=== PATIENT | female | born 1990 | race Caucasian/White ===

== ENCOUNTER 2018-09-08 19:16 | Inpatient (IN) | payer BC ==
[~2018-09-08] VITALS: Ht 162.6 cm; Wt 107.4 kg
[2018-09-08] MEDS ORDERED: HCTZ 25MG TAB25 MG PO (19:36)
[2018-09-08] MEDS ORDERED: COREG 6.256.25 MG/TA PO (19:36)
[2018-09-08 20:36] LABS: BASO % 0.4 % (0.0-2.0); EOS # 0.2 (0.0-0.7); GRAN # 6.9 (1.4-6.5); GRAN % 67.3 % (42.2-75.2); HEMATOCRIT 46.5 % (37.0-47.0); HEMOGLOBIN 16.2 g/dl (12.5-16.0); LYMPH # 2.3 (1.2-3.4); LYMPH % 22.2 % (20.0-51.0); MEAN CELL VOLUME 83 fl (80.0-100.0); MEAN CORPUSCULAR HEMOGLOBIN 29 pg (27.0-31.0); MEAN CORPUSCULAR HGB CONC 35 g/dl (33.0-37.0); MEAN PLATELET VOLUME 10.1 fl (7.4-10.4); MONO # 0.8 (0.1-0.6); MONO % 7.9 % (1.7-9.3); PLATELET COUNT 279 K/mm3 (130-400); RED BLOOD COUNT 5.58 M/mm3 (4.10-5.30); REDCELL DISTRIBUTION WIDTH-CV 12.7 % (11.5-14.5)
[2018-09-08 20:55] LABS: ALBUMIN 4.4 gm/dL (3.5-5.0); BILIRUBIN,TOTAL 0.7 mg/dL (0.0-1.0); CREATININE, serum 1.67 mg/dL (0.52-1.25); POTASSIUM 3.1 mmol/L (3.4-5.0); TOTAL PROTEIN 8.1 gm/dL (6.4-8.2)
[2018-09-08 21:14] LABS: COLLECTION METHOD CLEAN CATCH
[2018-09-08 21:22] LABS: MUCOUS Present /lpf; PH 5 (5-8); SQUAMOUS EPITHELIAL 0-2 /hpf; URINE APPEARANCE Clear; URINE BACTERIA None Seen /hpf; URINE BILIRUBIN Negative (NEGATIVE); URINE BLOOD 1+ (NEGATIVE); URINE COLOR Yellow; URINE GLUCOSE Negative (NEGATIVE); URINE KETONE Negative (NEGATIVE); URINE LEUKOCYTE ESTERASE Negative (NEGATIVE); URINE NITRATE Negative (NEGATIVE); URINE PROTEIN(semi-quant) 1+ (NEGATIVE); URINE RBC 0-2 /hpf; URINE UROBILINOGEN Negative (NEGATIVE)
[2018-09-08 21:25] LABS: TSH w REFLEX 1.17 uIU/mL (0.465-4.680)
[2018-09-08 23:40] VITALS: O2SAT 98
[2018-09-08 23:41] VITALS: O2SAT 99
[2018-09-08 23:48] VITALS: O2SAT 98
[2018-09-08 23:52] VITALS: O2SAT 98
[2018-09-08 23:53] VITALS: O2SAT 98
[2018-09-09] VITALS (635 sets, daily range): BP systolic 115–161; BP diastolic 68–109; PULSE 72–102; TEMP 97.6–98.8; O2SAT 87–100
[2018-09-09 00:06] LABS: MAGNESIUM 1.8 mg/dL (1.6-2.3)
[2018-09-09 00:10] LABS: TROPONIN-I < 0.012 ng/mL (0.000-0.035)
[2018-09-09] MEDS ORDERED: IBU400 MG PO (01:10)
[2018-09-09] MEDS ORDERED: COREG12.5 MG PO (01:51)
--- NOTE | 2018-09-09 04:47 | NUR ---
223 - RECEIVED REPORT FROM ER NURSE AVERY VIA PHONE. 2330 - PT ARRIVED IN UNIT VIA ASTRETCHER, ABLE TO TRANSFER HERSELF FROM STRETCHER TO BED. PT ORIENTED TO ROOM, POLICY, VISITATION AND USE OF CALL LIGHT. 7695 - NICARDIPINED PUT ON HOLD. SEE IV TITRATE DOCUMENTATION.
--- NOTE | 2018-09-09 04:56 | NUR ---
NICARDIPINE DRIP PUT ON STAN PT'S BP WAS 115/68. WILL CONTINUE TO MONITOR.
[2018-09-09 06:36] LABS: CREATININE, serum 1.58 mg/dL (0.52-1.25); POTASSIUM 3.4 mmol/L (3.4-5.0)
[2018-09-09 06:52] LABS: BASO # 0.1 (0.0-0.2); BASO % 0.5 % (0.0-2.0); EOS # 0.2 (0.0-0.7); EOS % 1.8 % (0-4.0); GRAN # 6.3 (1.4-6.5); GRAN % 63.1 % (42.2-75.2); HEMATOCRIT 40.8 % (37.0-47.0); LYMPH # 2.4 (1.2-3.4); MEAN CELL VOLUME 85 fl (80.0-100.0); MEAN CORPUSCULAR HEMOGLOBIN 29 pg (27.0-31.0); MEAN CORPUSCULAR HGB CONC 34 g/dl (33.0-37.0); MEAN PLATELET VOLUME 10.1 fl (7.4-10.4); MONO % 10.3 % (1.7-9.3); PLATELET COUNT 250 K/mm3 (130-400); RED BLOOD COUNT 4.82 M/mm3 (4.10-5.30); REDCELL DISTRIBUTION WIDTH-CV 12.8 % (11.5-14.5)
--- NOTE | 2018-09-09 10:00 | NUR ---
CARDENE GTT CONTINUES TO BE ON HOLD AT THIS TIME. SBP CONSISTANTLY REMAINING BELOW 170.
--- NOTE | 2018-09-09 12:44 | NUR ---
ANDRE nieves met with patient to discuss discharge plan. 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 The patient is originally from the [facility]. The patient is independent with ADLs. The patient does not currently have a local PCP and she receives her medications from [facility]. ANDRE nieves provided a list of Primary Care Clinics and physicians in [place] as the patient wanted to conduct her own research to select a PCP. The patient does not have DPOA-HC completed but stated that she would think about completing one while here. ANDRE to continue to follow to ensure selection of PCP.
--- NOTE | 2018-09-09 19:40 | NUR ---
Bedside report received from JAYLAN Alexander
--- NOTE | 2018-09-09 20:00 | NUR ---
Patient resting in bed at this time. She is alert and oriented. No complaints of pain or discomfort. Assessment complete. Vitals remain stable. No further needs at this time. Will keep her updated on when she is moving to the floor. Will continue to monitor. Call light within reach.
--- NOTE | 2018-09-09 22:16 | NUR ---
Report called to JAYLAN Richardson on the medical floor. Patient's belongings are gathered. Awaiting transfer.
--- NOTE | 2018-09-09 22:43 | NUR ---
Patient transferred to the floor at this time via wheelchair. She is accompanied by JAYLAN Richardson. All belongings and chart went with the patient.
[2018-09-10 01:22] VITALS: BP 144/95
[2018-09-10 02:02] VITALS: BP 143/80; BP 150/99
--- NOTE | 2018-09-10 02:58 | NUR ---
Patient arieved to floor around 2245 via wheelchair. NS at 125 ml/hr to IV site to right forearm. Site is without redness, warmth, swelling, and pain. Telemetry connected. Denied having pain and discomfort. Patient smiling, laughing, and joking with staff. BP was 157/105. Given PRN Hydralazine per orders around 0015. Rechecked with a result of 144/95. Patient took shower. Had patient ambulate in [place] from bedroom to nutrition room and back. Did state that she was feeling a little dizzy, but not enough to make her feel like she would lose her balance. Gait continued to be steady. BP rechecked-150/99. This nurse sat and talked with patient for a while. BP about 30 mintues later was 154/96. Continues to deny having headache. Denies having any further dizzyness. Educated that she is scheduled to have MRA done of the abdomen, and voices understanding. Voices no other needs or concerns at this time. Sitting up in bed on computer, mom at bedside sleeping. Call light is within reach.
[2018-09-10 03:59] VITALS: BP 146/91; PULSE 79; TEMP 97.9
--- NOTE | 2018-09-10 05:54 | NUR ---
Continues to deny having pain and discomfort. Most recent BP 146/91. Denies having headache. NS continues at 125 ml/hr to right forearm. Independent in room. Mom slept on couch. Denies having any needs or concerns at this time. Resting in bed with call light within reach.
[2018-09-10 07:13] LABS: BASO # 0.1 (0.0-0.2); BASO % 0.6 % (0.0-2.0); EOS # 0.3 (0.0-0.7); EOS % 3.5 % (0-4.0); GRAN # 4.5 (1.4-6.5); GRAN % 55.2 % (42.2-75.2); HEMATOCRIT 41.4 % (37.0-47.0); HEMOGLOBIN 14.2 g/dl (12.5-16.0); LYMPH # 2.5 (1.2-3.4); LYMPH % 30.6 % (20.0-51.0); MEAN CELL VOLUME 86 fl (80.0-100.0); MEAN CORPUSCULAR HEMOGLOBIN 30 pg (27.0-31.0); MEAN CORPUSCULAR HGB CONC 34 g/dl (33.0-37.0); MEAN PLATELET VOLUME 10.2 fl (7.4-10.4); MONO # 0.8 (0.1-0.6); MONO % 9.9 % (1.7-9.3); PLATELET COUNT 239 K/mm3 (130-400); RED BLOOD COUNT 4.82 M/mm3 (4.10-5.30); REDCELL DISTRIBUTION WIDTH-CV 13.1 % (11.5-14.5)
[2018-09-10 07:22] LABS: CALCIUM 8.7 mg/dL (8.4-10.2); CREATININE, serum 1.35 mg/dL (0.52-1.25); POTASSIUM 3.6 mmol/L (3.4-5.0)
[2018-09-10 07:58] VITALS: BP 133/91; PULSE 76; TEMP 98.5
[2018-09-10 12:12] VITALS: BP 128/81; PULSE 84; TEMP 98.5
[2018-09-10] MEDS ORDERED: PRINIVIL2.5 MG PO (12:48)
[2018-09-10] MEDS ORDERED: COREG12.5 MG PO (12:50)
[2018-09-10] MEDS ORDERED: HCTZ 25MG TAB25 MG PO (12:51)
[2018-09-10] MEDS ORDERED: K-DUR 10 MEQ T10 MEQ PO (12:51)
--- NOTE | 2018-09-10 13:00 | NUR ---
Patient has been sleeping most the morning. She is anxious about her discharge plan. She has anxiety and is worried about her school work and her summer plans being affected by her stay in the hospital. She denies pain and nausea. She will be discharging later this afternoon. No other changes at this time. Call light within reach. IVF's stopped at this time as ordered.
--- NOTE | 2018-09-10 16:30 | NUR ---
Patient is discharging home. Discharge instructions discussed with patient. No questions verbalized. IV discontinued. 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 Copies of discharge instructions given to patient. Explained when her follow up appointments are. All belongings packed up and sent with patient. Patient walked out garret [place] [facility].
== END 2018-09-10 16:30 | disposition home or self-care (01) | DRG 305 ==
LOC: COL.ER 19:16 → ICU 21:44 → MEDICAL 09-09 23:44
PROVIDERS: Emergency Medicine; Hospitalist; Nurse Practitioner Family
DX: I16.1 Hypertensive emergency (principal); N17.9 Acute kidney failure, unspecified; I12.9 Hypertensive chronic kidney disease with stage 1 through stage 4 chronic kidney disease, or unspecified chronic kidney disease; N18.9 Chronic kidney disease, unspecified; E66.9 Obesity, unspecified; Z68.38 Body mass index [BMI] 38.0-38.9, adult; G89.21 Chronic pain due to trauma; M54.5 Low back pain; M54.2 Cervicalgia; Z91.14 Patient's other noncompliance with medication regimen
CPT/HCPCS: 99222-AI; 99239; A9585; C8902; J0360; J2060; J7030; J7050

== ENCOUNTER → 2018-10-18 | Outpatient (CLI) | payer BC ==
[~2018-10-18] MED LIST: COREG 6.256.25 MG/TA PO; COREG12.5 MG PO; HCTZ 25MG TAB25 MG PO; IBU400 MG PO; K-DUR 10 MEQ T10 MEQ PO; PRINIVIL2.5 MG PO
== END ==
LOC: COL.RAD 10:11
DX: N17.9 Acute kidney failure, unspecified (principal)